=== PATIENT | male | born 1975 | race Caucasian/White ===

== ENCOUNTER 2024-03-30 12:47 | Inpatient (IN) | payer OTHER ==
[2024-03-30 13:21] VITALS: BMI 16.5
[2024-03-30] MEDS ORDERED: IBUPROFEN 600 MG TABLET (FP) PO PRN (13:50)
[2024-03-30] MEDS ORDERED: BENZOCAINE/MENTHOL (CHLORASEPTIC ) LOZENGE MM PRN (13:50)
[2024-03-30] MEDS ORDERED: NICOTINE POLACRILEX 2 MG LOZENGE BC PRN (13:50)
[2024-03-30] MEDS ORDERED: MAG HYDROX/AL HYDROX/SIMETH 30 ML UNIT-DOSE CUP PO PRN (13:50)
[2024-03-30] MEDS ORDERED: IBUPROFEN 400 MG TABLET (FP) PO PRN (13:50)
[2024-03-30] MEDS ORDERED: LOPERAMIDE HCL 2 MG CAPSULE PO PRN (13:50)
[2024-03-30] MEDS ORDERED: MAGNESIUM HYDROX 2400MG/30ML ORAL SUSPENSION 30 ML CUP PO PRN (13:50)
[2024-03-30] MEDS ORDERED: BENZONATATE 200 MG CAPSULE PO PRN (13:50)
[2024-03-30] MEDS ORDERED: POLYETHYLENE GLYCOL (HEALTHYLAX) 3350 17 GM PACKET PO PRN (13:50)
[2024-03-30] MEDS ORDERED: guaiFENesin 600 MG TABLET.ER (FP) PO PRN (13:50)
[2024-03-30] MEDS ORDERED: TUBERCULIN PPD 5 TU/0.1ML VIAL ID ONE (17:51)
[2024-03-30 20:38] LABS: URINE APPEARANCE CLEAR; URINE BILIRUBIN NEGATIVE (NEGATIVE); URINE COLOR YELLOW; URINE GLUCOSE (UA) NEGATIVE (NEGATIVE); URINE KETONE NEGATIVE (NEGATIVE); URINE LEUK ESTERASE NEGATIVE (NEGATIVE); URINE NITRITE NEGATIVE (NEGATIVE); URINE PROTEIN NEGATIVE (NEGATIVE)
[2024-03-30] MEDS: MELATONIN 5 MG TABLETS PO SCH (21:31)
[2024-03-30] MEDS: THIAMINE 100 MG TABLET PO SCH (21:31)
[2024-03-31] MEDS: ALBUTEROL SO4 HFA INHALER IH PRN (06:22)
[2024-03-31] MEDS: NICOTINE POLACRILEX 2 MG GUM BUC PRN (09:54)
[2024-03-31] MEDS: PRENATAL VITAMINS W/ FOLIC ACID TABLET (FP) PO SCH (09:54)
[2024-03-31] MEDS: ACETAMINOPHEN 325 MG TABLET (FP) PO PRN (11:38)
[2024-03-31 11:55] LABS: HEMATOCRIT 38.4 % (35.4-49); HEMOGLOBIN 12.9 GM/dL (11.7-16.9); MCH 32.7 pg (25.7-33.7); MCHC 33.7 g/dl (32.0-35.9); MEAN CELL VOLUME 97.1 fl (80-96); MEAN PLT VOLUME 7.6 fl (7.5-11.1); PLATELET COUNT 322 10^3/uL (134-434); RBC 3.95 M/mm3 (4.00-5.60); RDW 12.9 % (11.9-15.9)
[2024-03-31 12:03] LABS: POTASSIUM 4.2 mmol/L (3.5-5.1)
[2024-03-31] MEDS: PATIENT'S OWN MEDICATION (NON-FORMULARY) (Fluticasone Propion/Salmeterol [Fluticasone-Salm IH SCH (12:07)
[2024-03-31 12:08] LABS: ALBUMIN 3.6 g/dl (3.4-5.0); BLOOD UREA NITROGEN 14.1 mg/dL (7-18)
[2024-03-31 12:12] LABS: BILIRUBIN,TOTAL 0.3 mg/dL (0.2-1); CREATININE 0.8 mg/dL (0.55-1.3); TOT PROT 6.5 g/dl (6.4-8.2)
[2024-03-31 13:28] LABS: SYPHILIS W/ RPR CONF NON-REACTIVE (NONREACTIVE)
[2024-03-31] MEDS: ARIPiprazole 10 MG TABLET PO SCH (21:28)
[2024-03-31] MEDS: FLUTICASONE/SALMETEROL (WIXELA) 100 MCG/50 MCG DISKUS IH SCH (21:30)
[2024-03-31] MEDS: DIVALPROEX NA *ER* EXTEND REL 500 MG TABLET.SA (FP) PO SCH (21:36)
[2024-04-01] MEDS: hydrOXYzine PAMOATE 25 MG CAPSULE (FP) PO PRN (16:44)
[2024-04-02 07:05] VITALS: BP 94/59; PULSE 73; RESP 17; TEMP 97.1
[2024-04-03] MEDS ORDERED: FLU VACCINE (FLULAVAL) PF 45 MCG/0.5 ML SYRINGE 2024-2025 IM ONE (12:00)
[2024-04-03] MEDS ORDERED: PNEUMOC 20-VAL CONJ-DIP CRM/PF 0.5 ML SYRINGE IM ONE (12:00)
== END 2024-04-02 22:05 | disposition left against medical advice (07) | DRG 770 ==
LOC: YASAS 12:47 → Y3NR 13:51 → UNDOADMIN 13:51 → Y3NR 14:31 → UNDOADMIN 14:31 → Y3W 14:45
PROVIDERS: ADMIT Allergy & Immunology; ATTEND Psychiatry & Neurology Pain Medicine
PROC: HZ42ZZZ Group Counseling for Substance Abuse Treatment, Cognitive-Behavioral (ICD-10-PCS; principal; 2024-03-30)
DX: F14.20 Cocaine dependence, uncomplicated (principal); F12.20 Cannabis dependence, uncomplicated; F17.210 Nicotine dependence, cigarettes, uncomplicated; F25.9 Schizoaffective disorder, unspecified
CPT/HCPCS: 36415; 71045-TC-FY; 80053; 80305; 81003; 85027; 86780; 86803; 87811; 93005; 93010